=== PATIENT | male | born 1975 | race Caucasian/White ===

== ENCOUNTER 2024-02-10 08:57 | Outpatient (CLI) | payer OTHER | END 2024-02-10 08:58 | disposition home or self-care (01) | LOC: SCSMRI 08:57 | PROVIDERS: ATTEND Orthopaedic Surgery | DX: M75.101 Unspecified rotator cuff tear or rupture of right shoulder, not specified as traumatic (principal); M65.811 Other synovitis and tenosynovitis, right shoulder; S46.211A Strain of muscle, fascia and tendon of other parts of biceps, right arm, initial encounter; M25.411 Effusion, right shoulder; M24.211 Disorder of ligament, right shoulder; M75.91 Shoulder lesion, unspecified, right shoulder ==